=== PATIENT | male | born 1950 ===

== ENCOUNTER 2017-02-01 07:17 | Day surgery (SDC) | payer BC, OTHER ==
[2017-02-01] MEDS ORDERED: PROPOFOL 10 MG/1 ML (200 MG/20 ML) VIAL IV ONE (08:00)
[2017-02-01] MEDS ORDERED: LIDOCAINE W/ SODIUM BICARB 0.5 ML SYR ONE (10:34)
[2017-02-01] MEDS ORDERED: Lactated Ringers 1,000 ML PRIMARY IV ONE (10:34)
[2017-02-01 10:58] VITALS: RESP 12; TEMP 98.2
== END 2017-02-01 10:52 | disposition home or self-care (01) ==
LOC: SDSC 07:17
PROVIDERS: ATTEND Ophthalmology
DX: H25.11 Age-related nuclear cataract, right eye (principal)
CPT/HCPCS: 66984; J2704; J7120